=== PATIENT | male | born 1945 | race Caucasian/White ===

== ENCOUNTER 2025-02-14 06:20 | Day surgery (SDC) | payer MEDICARE, OTHER, SELFPAY | END 2025-02-14 14:23 | disposition home or self-care (01) | LOC: GI 06:20 | PROVIDERS: ATTENDING PHYSICIAN Student in an Organized Health Care Education/Training Program | DX: Z12.11 Encounter for screening for malignant neoplasm of colon (principal); K62.89 Other specified diseases of anus and rectum; K62.1 Rectal polyp; D12.4 Benign neoplasm of descending colon; D12.2 Benign neoplasm of ascending colon; D12.1 Benign neoplasm of appendix; K63.5 Polyp of colon; Z86.0100 Personal history of colon polyps, unspecified; Z98.890 Other specified postprocedural states | CPT/HCPCS: 45385; 45381; 45380; 88305 ==